=== PATIENT | female | born 1975 | race Caucasian/White ===

== ENCOUNTER 2021-04-12 20:09 | Emergency (ER) | payer OTHER, SELFPAY ==
--- NOTE | 2021-04-12 | ECG_ITS ---
Test Reason : od Blood Pressure : / mmHG Vent. Rate : 099 BPM Atrial Rate : 099 BPM P-R Int : 154 ms QRS Dur : 106 ms QT Int : 390 ms P-R-T Axes : 068 -37 082 degrees QTc Int : 500 ms Normal sinus rhythm Left axis deviation Left ventricular hypertrophy with repolarization abnormality ( R in aVL , Beny product ) Anteroseptal infarct , age undetermined Prolonged QT Abnormal ECG No previous ECGs available Referred By: Opal Sharma Electronically Signed By:Benny Acosta
[2021-04-12 20:12] VITALS: BP 141/96; PULSE 102; RESP 17; TEMP 36.8; O2SAT 99; BMI 28.3
[2021-04-12 20:16] LABS: Glucose, Whole Blood 259 mg/dL (60-115)
--- NOTE | 2021-04-12 20:16 | ED_ITS ---
HPI - Altered Mental Status General Chief Complaint: Overdose Stated Complaint: OD Time Seen by Provider: 04/12/21 20:16 History of Present Illness HPI narrative: Patient is a 46-year-old female with a history of polysubstance abuse. Get dropped off in the emergency department after stopping breathing. Patient not responsive to painful stimuli Related Data Allergies Allergy/AdvReac Type Severity Reaction Status Date / Time No Known Allergies Allergy Verified 04/12/21 20:17 Review of Systems Verdana 4l Review of Systems: Verdana 4d unable to obtain review of Verdana 4d systems secondary to patient's condition Verdana 4d Yes Unobtainable due to mental condition PMF Past Medical History Attestation statement: The following information was validated with the patient. Medical History (Updated 04/12/21 @ 22:15 by Opal Sharma MD) Anxiety Asthma Depression Seasonal allergies Social History Social History Advance Directives: No Patient : No Physical Exam Verdana 4l Vital Signs: Verdana 4d Verdana 4d Vital Signs: Verdana 4d Verdana 4Bd Last Vital Signs Verdana 4d Shape Carver New 4d Shape Carver New 4d Temp 98.1 F 04/12/21 21:14 Shape Carver New 4d Pulse 78 04/12/21 21:14 Shape Carver New 4d Resp 18 04/12/21 21:14 BP 133/88 04/12/21 21:14 Pulse Ox 100 04/12/21 21:14 Oxygen Flow Rate 3 04/12/21 20:12 BMI result Body Mass Index 28.3 unresponsive, no response to painful stimuli Eyes: pinpoint pupil ENT: mucous membrane was moist Neck: Normal inspection. Neck supple. No lymph nodes noted. No crepitus CVS: Normal heart rate and rhythm. Pulses normal. Normal S1 and S2 Respiratory: no spontaneous respiration Abdomen: Soft and nontender. No rigidity. No distention. Skin: cyanotic Extremities: no edema noted Neuro: no response to painful stimuli pinpoint pupils MDM - Altered Mental Status MDM Narrative Medical decision making narrative: patient given Narcan with good results. Now is awake alert oriented color turn pain became awake alert answering questions. Admits using heroin. Patient sugar was over 200 will monitor patient for approximately 2 hours prior to disc harge. Patient told to stop using heroin. Differential Diagnosis Differential diagnosis: Likely overdose polysubstance Lab Data Labs: Lab Results 04/12/21 Range/Units 20:12 POC Glucose 259 H (60-115) mg/dL Discharge Plan Discharge Clinical Impression: Drug overdose Patient Disposition: Home, Self-Care Instructions: Opioid Safety (ED), Adult Overdose (ED), Opioid Use Disorder (ED) Referrals: Physician,Unknown J [Primary Care Provider] - 2 days ( Please go to detox. Using narcotics this evening almost killed you.)
--- NOTE | 2021-04-12 20:35 | PC.NURSE ---
pts mother called, pt does not want mom to know any information regarding her care/condition
[2021-04-12 21:14] VITALS: BP 133/88; PULSE 78; RESP 18; TEMP 36.7; O2SAT 100
[2021-04-12 22:35] VITALS: BP 123/73; O2SAT 99
[2021-04-12] MEDS: Naloxone HCl Nasal TAKE HOME 4 MG SPRAY NOSTRILALT (22:48)
--- NOTE | 2021-04-12 22:49 | PC.NURSE ---
TONIE sent home with pt
== END 2021-04-12 22:49 | disposition home or self-care (01) ==
PROVIDERS: Emergency Provider Emergency Medicine Emergency Medical Services
DX: T40.1X1A Poisoning by heroin, accidental (unintentional), initial encounter (principal); R40.4 Transient alteration of awareness; F19.10 Other psychoactive substance abuse, uncomplicated; Y92.810 Car as the place of occurrence of the external cause
CPT/HCPCS: 82947; 93005; 99284